=== PATIENT | female | born 1960 | race Hispanic/Latino ===

== ENCOUNTER 2017-03-06 09:21 | Emergency (ER) | payer OTHER ==
[2017-03-06 09:42] VITALS: PULSE 69; RESP 16; TEMP 98.7; BMI 27.8
--- NOTE | 2017-03-06 09:55 | ED PDOC ---
Arrival/HPI - General Chief Complaint: Lower Extremity Problem/Injury Time Seen by Provider: 03/06/17 09:31 Historian: Patient - History of Present Illness Narrative History of Present Illness (Text): 03/06/17 09:55 A 56 year old female was brought in by EMS to the emergency department complaining of left ankle pain s/p slip and fall an hour prior to arrival. Patient reports she was walking and twisted her ankle. Denies any loss of consciousness or head injury. Patient is ambulatory with limp. Denies taking any pain medication. Patient denies any vomiting, knee pain or any other complaints at this time. Time/Duration: 1 hour Symptom Onset: Sudden Symptom Course: Unchanged Activities at Onset: Light Context: Walking Past Medical History - Provider Review Nursing Documentation Reviewed: Yes - Endocrine/Metabolic Hx Hypothyroidism: Yes - Psychiatric Hx Substance Use: No Family/Social History - Physician Review Nursing Documentation Reviewed: Yes Family/Social History: No Known Family HX Smoking Status: Never Smoked Hx Alcohol Use: No Hx Substance Use: No Allergies/Home Meds Allergies/Adverse Reactions: Allergies No Known Allergies Allergy (Verified 03/06/17 09:47) Home Medications: Home Meds Medication Instructions Recorded Confirmed Levothyroxine Sodium [Levo-T] 37 mcg PO DAILY 03/06/17 03/06/17 Review of Systems - Physician Review All systems were reviewed & negative as marked: Yes - Review of Systems Gastrointestinal: absent: Vomiting Musculoskeletal: absent: Other (knee pain) Physical Exam - Physical Exam Narrative Physical Exam (Text): 03/06/17 09:53 Constitutional: No acute distress. Head: Normocephalic. Atraumatic. Eyes: PERRL. ENT: Moist mucous membranes. Neck: Supple. Cardiovascular: Regular rate. Chest: No tenderness. Respiratory: Clear to auscultation bilaterally. GI: Soft. Nontender. Nondistended. Back: No CVA tenderness. Musculoskeletal: edema lateral malleolus, dp pulse 2+, no medial malleolus tenderness, no base of 5th metatarsal tenderness, no proximal fibular tenderness Skin: No rash. Neurologic: Alert, no focal deficit. Vital Signs Reviewed: Yes Vital Signs Temp Pulse Resp BP Pulse Ox 03/06/17 09:30 98.7 F 69 16 144/82 98 Temperature: Afebrile Blood Pressure: Normal Pulse: Regular Respiratory Rate: Normal Appearance: Positive for: Well-Appearing, Non-Toxic, Comfortable Pain Distress: None Mental Status: Positive for: Alert and Oriented X 3 Medical Decision Making ED Course and Treatment: 03/06/17 09:52 Impression: A 56 year old female with left ankle pain. Differential Diagnosis included but are not limited to: left ankle pain r/o fracture Plan: -- Radiology left ankle -- Toradol -- Reassess and disposition Progress Notes: 03/06/17 10:22 Radiology of left foot: Distal fibular fracture, non-displaced, as read by me. Splint placed and crutches provided. Patient will need follow up with ortho. - RAD Interpretation Radiology Orders: 03/06/17 09:47 ANKLE LEFT 3 VIEWS ROUTINE [RAD] Stat - Medication Orders Current Medication Orders: Discontinued Medications Ketorolac Tromethamine (Toradol) 60 mg IM STAT STA Stop: 03/06/17 09:48 Last Admin: 03/06/17 10:03 Dose: 60 mg MAR Pain Assessment Document 03/06/17 10:03 MS (Rec: 03/06/17 10:07 MS [id number]) Pain Reassessment Is this a pain reassessment? No Sleep Is patient sleeping during reassessment? No Presence of Pain Presence of Pain Yes Pain Scale Used Pain Scale Used Numeric Location Left, Right or Bilateral Left Pain Location Body Site Ankle Description Description Constant Intensity of Pain at present 4 Pain Behavior Withdrawal from Touch Aggravating Factors Changing Position Exercise/Activity Sitting IM Administration Charges Document 03/06/17 10:03 MS (Rec: 03/06/17 10:07 MS [id number]) Injection Site MAR Injection Site Left Deltoid Charges for Administration # of IM Administrations 1 - Scribe Statement The provider has reviewed the documentation as recorded by the Leanne Basilio Provider Scribe Attestation: All medical record entries made by the Scribe were at my direction and personally dictated by me. I have reviewed the chart and agree that the record accurately reflects my personal performance of the history, physical exam, medical decision making, and the department course for this patient. I have also personally directed, reviewed, and agree with the discharge instructions and disposition. Disposition/Present on Arrival - Present on Arrival Any Indicators Present on Arrival: No History of DVT/PE: No History of Uncontrolled Diabetes: No Urinary Catheter: No History of Decub. Ulcer: No History Surgical Site Infection Following: None - Disposition Have Diagnosis and Disposition been Completed?: Yes Diagnosis: Left fibular fracture Disposition: HOME/ ROUTINE Disposition Time: 10:22 Patient Plan: Discharge Condition: STABLE Discharge Instructions (ExitCare): Ankle Fracture (ED) Referrals: Kelli Brizuela MD [Primary Care Provider] - Follow up with primary Wilfrido Valentine III, MD [Medical Doctor] - Follow up with primary Forms: [place] [employer] (B[place]), WORK NOTE
--- NOTE | 2017-03-06 10:41 | RAD ---
PROCEDURE: Left Ankle Radiographs. HISTORY: lateral pain, fall COMPARISON: None FINDINGS: BONES: There is a nondisplaced fracture of the lateral malleolus JOINTS: Normal. No osteoarthritis. Ankle mortise maintained. Talar dome intact SOFT TISSUES: Normal. OTHER FINDINGS: None. IMPRESSION: There is a nondisplaced fracture of the lateral malleolus
[2017-03-06 11:04] VITALS: BP 138/82; O2SAT 99
== END 2017-03-06 11:02 | disposition home or self-care (01) ==
LOC: ED 09:21
DX: S82.62XA Displaced fracture of lateral malleolus of left fibula, initial encounter for closed fracture (principal); W01.0XXA Fall on same level from slipping, tripping and stumbling without subsequent striking against object, initial encounter; Y93.01 Activity, walking, marching and hiking; E03.9 Hypothyroidism, unspecified
CPT/HCPCS: 29515; 73610; 96372; 99284; J1885